=== PATIENT | male | born 2000 | race Hispanic/Latino ===

== ENCOUNTER 2022-09-22 11:21 | Emergency (ER) | payer OTHER ==
[~2022-09-22] VITALS: Ht 167.6 cm; Wt 92.8 kg
[2022-09-22 12:44] VITALS: BP 131/78; TEMP 98.3; O2SAT 99
== END 2022-09-22 12:59 | disposition home or self-care (01) ==
LOC: M ED 11:21
DX: M54.50 Low back pain, unspecified (principal); S40.022A Contusion of left upper arm, initial encounter; V89.2XXA Person injured in unspecified motor-vehicle accident, traffic, initial encounter; Z88.0 Allergy status to penicillin

== ENCOUNTER 2022-12-26 14:24 | Emergency (ER) | payer OTHER ==
[~2022-12-26] VITALS: Ht 167.6 cm; Wt 92.3 kg
[2022-12-26] MEDS ORDERED: NS 1,000 ML IV ONE (15:00)
[2022-12-26] MEDS ORDERED: ONDANSETRON 4MG 2ML VIAL IV ONE (15:00)
[2022-12-26 15:19] LABS: RSV AMPLIFICATION NEGATIVE (NEGATIVE)
[2022-12-26 15:38] LABS: BASO # 0.1 10^3/uL (0.0-0.2); BASO % 0.6 % (0.0-1.0); EOS # 0.3 10^3/uL (0.0-0.5); EOS % 2.3 % (0.0-3.0); HEMATOCRIT 41.9 % (42.0-52.0); HEMOGLOBIN 13.5 g/dl (13.5-17.5); LYMPH # 2.4 10^3/uL (1.5-5.0); LYMPH % 22.1 % (24.0-44.0); MEAN CORPUSCULAR HEMOGLOBIN 27.2 pg (27.0-33.0); MEAN CORPUSCULAR HGB CONC 32.2 g/dl (32.0-36.5); MEAN CORPUSCULAR VOLUME 84.5 fl (80.0-96.0); MONO # 0.7 10^3/uL (0.0-0.8); MONO % 6.2 % (2.0-8.0); NEUTROPHILS # 7.5 10^3/uL (1.5-8.5); NEUTROPHILS % 68.5 % (36.0-66.0); PLATELET COUNT, AUTOMATED 312 10^3/uL (150-450); RED BLOOD COUNT 4.96 10^6/uL (4.30-6.10); WHITE BLOOD COUNT 10.9 10^3/uL (4.0-10.0)
[2022-12-26] MEDS ORDERED: ONDA4TAB6 PO (18:56)
[2022-12-26 19:13] VITALS: BP 117/60; TEMP 97.3; O2SAT 98
[2022-12-27 07:02] LABS: ALBUMIN 4.5 G/DL (3.9-5.0); ALKALINE PHOSPHATASE 73 U/L (40-129); ALT/SGPT 24 U/L (1-41); AST/SGOT 26 U/L (5-40); BILIRUBIN,DIRECT < 0.2 MG/DL (0.1-0.4); BILIRUBIN,TOTAL < 0.7 MG/DL (0.2-1.3); TOTAL PROTEIN 7.4 G/DL (6.3-8.2)
[2022-12-27 07:03] LABS: CPK CREATINE PHOSPHOKINASE 197 U/L (30-170); LIPASE 25 U/L (13-60)
== END 2022-12-26 19:16 | disposition home or self-care (01) ==
LOC: M ED 14:24
DX: R10.9 Unspecified abdominal pain (principal); R11.0 Nausea; Z88.0 Allergy status to penicillin; Z79.83 Long term (current) use of bisphosphonates
CPT/HCPCS: 74176; 80047; 80076; 81001; 82550; 83690; 85025; 87631; 87880; 96361; 96374; 99284; J2405

== ENCOUNTER 2024-09-19 06:31 | Emergency (ER) | payer OTHER ==
[~2024-09-19] VITALS: Ht 167.6 cm; Wt 102.3 kg
[~2024-09-19 06:31] MED LIST: ONDA-282 PO
[2024-09-19] MEDS: KETOROLAC 60 MG/2 ML VIAL IM ONE (11:00)
[2024-09-19] MEDS: NS (Normal Saline) 0.9% 1,000 ML IV ONE ×2 (11:28→15:14)
[2024-09-19 11:36] LABS: BASO # 0.1 10^3/uL (0.0-0.2); BASO % 0.8 % (0.0-1.0); EOS # 0.3 10^3/uL (0.0-0.5); EOS % 4.0 % (0.0-3.0); LYMPH # 4.0 10^3/uL (1.5-5.0); LYMPH % 47.3 % (24.0-44.0); MONO # 0.6 10^3/uL (0.0-0.8); MONO % 7.0 % (2.0-8.0); NEUTROPHILS # 3.5 10^3/uL (1.5-8.5); NEUTROPHILS % 40.8 % (36.0-66.0); PLATELET COUNT, AUTOMATED 293 10^3/uL (150-450)
[2024-09-19 12:05] LABS: ALT/SGPT 74 U/L (7.0-40); AST/SGOT 70 U/L (<34); CALCIUM LEVEL 9.7 MG/DL (8.5-10.1); CARBON DIOXIDE LEVEL 28 MMOL/L (20-31); CHLORIDE LEVEL 102 MMOL/L (98-107); CREATININE FOR GFR 0.94 MG/DL (0.70-1.30); GLOMERULAR FILTRATION RATE > 90.0 (>60); POTASSIUM SERUM 4.5 MMOL/L (3.5-5.1); SODIUM LEVEL 141 MMOL/L (136-145)
[2024-09-19] MEDS ORDERED: ISOVUE-370 76% 100 ML VIAL As Ordered ONE (12:09)
[2024-09-19] MEDS: KETOROLAC 30 MG/ML 1 ML VIAL IV ONE (12:33)
[2024-09-19 14:36] LABS: CK-MB VALUE MASS 3.7 NG/ML (<3.6)
[2024-09-19] MEDS ORDERED: HOME MED LIST COMPLETE! XX SCH (14:40)
[2024-09-19 14:48] LABS: CPK CREATINE PHOSPHOKINASE 1767 U/L (46-171); MB/CK RELATIVE INDEX 0.20 (< OR =4)
[2024-09-19 17:08] LABS: CK-MB VALUE MASS 3.1 NG/ML (<3.6)
[2024-09-19 17:12] LABS: CPK CREATINE PHOSPHOKINASE 1483.0 U/L (46-171); MB/CK RELATIVE INDEX 0.2 (< OR =4)
[2024-09-19 17:34] VITALS: BP 119/77; TEMP 97.5; O2SAT 100
== END 2024-09-19 17:41 | disposition home or self-care (01) ==
LOC: M ED 06:31
DX: R74.8 Abnormal levels of other serum enzymes (principal); Z88.0 Allergy status to penicillin
CPT/HCPCS: 73706; 80053; 82550; 82553; 84484; 85025; 93970; 96374; 99284; J1885; Q9967